=== PATIENT | female | born 2000 | race Caucasian/White ===

== ENCOUNTER 2021-12-25 16:19 | Emergency (ER) | payer OTHER ==
[2021-12-25 17:16] LABS: BASOPHIL 0.4 % (0-2); EOSINOPHIL 1.3 % (0-5); HCT 44.1 % (37.0-47.0); HGB 14.2 g/dl (12.5-16.0); LYMPHOCYTE 17.8 % (15-48); MCH 30.1 pg (25.0-31.0); MCHC 32.2 g/dL (32.0-36.0); MCV 93.4 fL (78.0-100.0); MONOCYTE 6.7 % (0-12); MPV 9.7 fL (6.0-9.5); NEUTROPHIL 73.3 % (41-80); NRBC 0; PLT 271 K/uL (150-400); RBC 4.72 M/uL (4.20-5.40); RDW 12.3 % (11.5-14.0)
[2021-12-25 17:29] LABS: BUN/CREAT RATIO (CALC) 7.9 RATIO; CREATININE 0.76 mg/dL (0.51-0.95)
[2021-12-25 17:47] LABS: BILIRUBIN NEGATIVE (NEGATIVE); BLOOD 1+ Ery/uL (NEGATIVE); CLARITY CLEAR (CLEAR); COLOR YELLOW (YELLOW); GLUCOSE (U) NORMAL (NORMAL); LEUKOCYTES 1+ Leu/uL (NEGATIVE); NITRITE NEGATIVE (NEGATIVE); PROTEIN TRACE (LOW) mg/dL (NEGATIVE); SPECIFIC GRAVITY >=1.030 (1.001-1.030); UROBILINOGEN 0.2 mg/dL (0.2-1.0)
[2021-12-25 17:55] LABS: BACTERIA 2+
[2021-12-25 17:56] LABS: CALCIUM OXALATE CRYSTALS TRACE
[2021-12-25] MEDS ORDERED: BACTRIM DS TAB1 EACH PO (19:40)
[2021-12-25] MEDS ORDERED: FLOMAX 0.4 MG0.4 MG PO (19:40)
[2021-12-25] MEDS ORDERED: ONDANSETRON HCL4 MG PO (19:40)
[2021-12-25] MEDS ORDERED: NORCO 5-325 TA1 EACH PO (19:40)
== END 2021-12-25 19:50 | disposition home or self-care (01) ==
LOC: FER 16:19
PROVIDERS: Nurse Practitioner Family
DX: F17.290 Nicotine dependence, other tobacco product, uncomplicated (principal); N13.2 Hydronephrosis with renal and ureteral calculous obstruction
CPT/HCPCS: 36415; 80048; 81001; 85025; 87088; J1885; J2405; J7030